=== PATIENT | male | born 1975 | race Caucasian/White ===

== ENCOUNTER 2019-02-23 10:39 | Emergency (ER) | payer OTHER ==
[~2019-02-23] VITALS: Ht 190.5 cm; Wt 93.0 kg
[~2019-02-23 10:39] MED LIST: COLCRYS0.6 MG PO; IBUPROFEN 200200 M1 PO; TRAMADOL 50 MG50 MG PO
[2019-02-23] MEDS ORDERED: AMOXICILLIN 50500 M1 PO (11:15)
[2019-02-23] MEDS ORDERED: NORCO 5-325 TA1 EAC1 PO (11:15)
[2019-02-23] MEDS ORDERED: IBUPROFEN 800800 M1 PO (11:15)
[2019-02-23 11:40] VITALS: BP 130/79
== END 2019-02-23 11:42 | disposition home or self-care (01) ==
LOC: M.ERS 10:39
DX: K04.7 Periapical abscess without sinus (principal); K02.9 Dental caries, unspecified; F17.210 Nicotine dependence, cigarettes, uncomplicated

== ENCOUNTER 2019-11-08 02:17 | Emergency (ER) | payer OTHER ==
[~2019-11-08] VITALS: Ht 188 cm; Wt 81.7 kg
[~2019-11-08 02:17] MED LIST changes: +AMOXICILLIN 50500 M1 PO; +IBUPROFEN 800800 M1 PO; +NORCO 5-325 TA1 EAC1 PO
[2019-11-08 02:21] VITALS: BP 148/99
[2019-11-08] MEDS ORDERED: NORCO 5-325 TA1 EAC1 PO (02:28)
== END 2019-11-08 02:33 | disposition home or self-care (01) ==
LOC: M.ERS 02:17
DX: T23.192A Burn of first degree of multiple sites of left wrist and hand, initial encounter (principal); T23.191A Burn of first degree of multiple sites of right wrist and hand, initial encounter; F17.210 Nicotine dependence, cigarettes, uncomplicated; X11.8XXA Contact with other hot tap-water, initial encounter; Y93.89 Activity, other specified; Y92.89 Other specified places as the place of occurrence of the external cause; Y99.8 Other external cause status

== ENCOUNTER 2020-02-04 12:33 | Emergency (ER) | payer OTHER ==
[~2020-02-04] VITALS: Ht 188 cm; Wt 88.5 kg
[2020-02-04 13:08] LABS: ABSOLUTE BASOPHILS 0.1 thou/uL (0.0-0.2); ABSOLUTE EOSINOPHILS 0.3 thou/uL (0.0-0.7); ABSOLUTE LYMPHOCYTES 3.1 thou/uL (0.8-5.3); ABSOLUTE MONOCYTES 0.8 thou/uL (0.0-1.2); ABSOLUTE NEUTROPHILS 5.3 thou/uL (1.6-8.1); BASOPHILS 0.8 %; EOSINOPHILS 3.1 %; HEMATOCRIT 40.2 % (42.0-52.0); MCH 30.8 pg (26.0-34.0); MCHC 34.7 g/dL (28.0-37.0); MCV 88.6 fL (80.0-100.0); MONOCYTES 8.4 %; MPV 7.7 fl. (7.2-11.1); NUCLEATED RBCS 0 /100WBC; PLATELET COUNT* 322 thou/uL (150-400); POLYS 55.7 %; RBC 4.54 mil/uL (4.50-6.00); RDW-CV 13.4 % (10.5-14.5); WBC 9.6 thou/uL (4.0-11.0)
[2020-02-04 13:29] LABS: CALCIUM 8.5 mg/dL (8.5-10.1); CREATININE 1.1 mg/dL (0.6-1.3); POTASSIUM 3.7 mmol/L (3.5-5.1)
[2020-02-04 13:39] LABS: ALBUMIN 3.8 g/dL (3.4-5.0); TOTAL BILIRUBIN 0.5 mg/dL (<0.1-1.0); TOTAL PROTEIN 6.8 g/dL (6.4-8.2)
[2020-02-04 15:15] VITALS: BP 126/86
--- NOTE | 2020-02-05 10:43 | EKG ---
[place] [address] ELECTROCARDIOGRAM REPORT Name: SHABBIR LIPSCOMB JR Room: [facility]#: [id number] Admission: 02/04/20 Attend Phys: Discharge: 02/04/20 Date of : 79 Date of Service: 02/04/20 1236 Report #: [id number] THIS REPORT FOR: //name// [facility] ED Test Date: 2020-02-04 Test Time: 12:36:12 Pat Name: SHABBIR LIPSCOMB Department: Room: Gender: Entry Level Account Manager: GLORIA : 1975 Requested By: Patty Rodney Order Number: [id number] MD: Romie Croft Measurements Intervals [place] Rate: 79 P: 62 TN: 150 QRS: 41 QRSD: 99 T: 57 QT: 378 QTc: 434 Interpretive Statements Sinus rhythm No previous ECG available for comparison Electronically Signed On 02-05-2020 10:43:24 CDT by Romie Croft [email or web address] <ELECTRONICALLY SIGNED> By: Romie Croft MD, [facility] 02/05/20 1043 1236 1236 Romie Croft MD, FACC /EPI
== END 2020-02-04 15:15 | disposition home or self-care (01) ==
LOC: M.ERS 12:33
PROVIDERS: Nurse Practitioner Family
DX: R20.0 Anesthesia of skin (principal); R06.00 Dyspnea, unspecified; R53.1 Weakness; F17.210 Nicotine dependence, cigarettes, uncomplicated

== ENCOUNTER 2020-09-02 01:25 | Emergency (ER) | payer OTHER ==
[~2020-09-02] VITALS: Ht 180.3 cm; Wt 82.5 kg
[2020-09-02 01:51] LABS: ABSOLUTE BASOPHILS 0.1 thou/uL (0.0-0.2); ABSOLUTE EOSINOPHILS 0.2 thou/uL (0.0-0.7); ABSOLUTE LYMPHOCYTES 2.3 thou/uL (0.8-5.3); ABSOLUTE MONOCYTES 0.8 thou/uL (0.0-1.2); BASOPHILS 0.8 %; EOSINOPHILS 2.5 %; HEMATOCRIT 45.5 % (42.0-52.0); HEMOGLOBIN 15.4 gm/dL (14.0-18.0); LYMPHOCYTES 24.1 %; MCH 30.2 pg (26.0-34.0); MCHC 33.9 g/dL (28.0-37.0); MCV 88.9 fL (80.0-100.0); MONOCYTES 8.6 %; NUCLEATED RBCS 0 /100WBC; PLATELET COUNT* 340 thou/uL (150-400); RBC 5.12 mil/uL (4.50-6.00); RDW-CV 13.4 % (10.5-14.5); WBC 9.4 thou/uL (4.0-11.0)
[2020-09-02 01:55] LABS: CALCIUM 9.7 mg/dL (8.5-10.1); CREATININE 1.2 mg/dL (0.6-1.3); POTASSIUM 3.4 mmol/L (3.5-5.1)
[2020-09-02 02:00] LABS: ALBUMIN 4.2 g/dL (3.4-5.0); TOTAL BILIRUBIN 1.1 mg/dL (<0.1-1.0); TOTAL PROTEIN 8.2 g/dL (6.4-8.2)
[2020-09-02 02:01] LABS: PROTIME 10.6 Seconds (9.20-11.50)
[2020-09-02] MEDS ORDERED: VASERETIC 5-121 EACH PO (04:13)
[2020-09-02 04:20] VITALS: BP 147/92
--- NOTE | 2020-09-04 17:28 | EKG ---
[place] [address] ELECTROCARDIOGRAM REPORT Name: SHABBIR LIPSCOMB JR Room: [facility]#: [id number] Admission: 09/02/20 Attend Phys: Discharge: 09/02/20 Date of : [birth year] Date of Service: 09/02/20 0135 Report #: [id number] THIS REPORT FOR: //name// [facility] ED Test Date: 2020-09-02 Test Time: 01:35:31 Pat Name: SHABBIR LIPSCOMB Department: Room: Gender: Guide Plant: : 1975 Requested By: Roxanne Byers Order Number: [id number] MD: Manas Mak Measurements Intervals [place] Rate: 79 P: 47 IA: 140 QRS: -11 QRSD: 96 T: 39 QT: 366 QTc: 420 Interpretive Statements Sinus rhythm ST elev, probable normal early repol pattern Baseline wander in lead(s) II,III,aVR,aVL,aVF,V2 Compared to ECG 02/04/2020 12:36:12 ST (T wave) deviation now present Electronically Signed On 09-04-2020 17:28:30 CDT by Manas Mak [email or web address] <ELECTRONICALLY SIGNED> By: Manas Mak MD, [facility] 09/04/20 1728 0135 Manas Mak MD, [facility] /EPI
== END 2020-09-02 04:20 | disposition home or self-care (01) ==
LOC: M.ERS 01:25
PROVIDERS: Personal Emergency Response Attendant
DX: F41.9 Anxiety disorder, unspecified (principal); I16.0 Hypertensive urgency; R20.0 Anesthesia of skin; R20.2 Paresthesia of skin; R13.0 Aphagia; F17.210 Nicotine dependence, cigarettes, uncomplicated; Z86.73 Personal history of transient ischemic attack (TIA), and cerebral infarction without residual deficits; Z91.013 Allergy to seafood

== ENCOUNTER 2020-11-30 15:31 | Emergency (ER) | payer OTHER ==
[~2020-11-30] VITALS: Ht 180.3 cm; Wt 68.0 kg
[~2020-11-30 15:31] MED LIST changes: +VASERETIC 5-121 EACH PO
[2020-11-30] MEDS ORDERED: AMOXIL 875 MG875 M1 PO (16:25)
[2020-11-30] MEDS ORDERED: LIDOCAINE VISC100 ML SWISH&SPIT (16:25)
[2020-11-30 16:37] VITALS: BP 126/72
== END 2020-11-30 16:37 | disposition home or self-care (01) ==
LOC: M.ERS 15:31
DX: K04.7 Periapical abscess without sinus (principal); F17.210 Nicotine dependence, cigarettes, uncomplicated; Z91.013 Allergy to seafood

== ENCOUNTER 2021-06-25 13:02 | Emergency (ER) | payer OTHER ==
[~2021-06-25] VITALS: Ht 188 cm; Wt 88.5 kg
[~2021-06-25 13:02] MED LIST changes: +AMOXIL 875 MG875 M1 PO; +LIDOCAINE VISC100 ML SWISH&SPIT
[2021-06-25 14:41] LABS: ABSOLUTE BASOPHILS 0.1 thou/uL (0.0-0.2); ABSOLUTE EOSINOPHILS 0.2 thou/uL (0.0-0.7); ABSOLUTE LYMPHOCYTES 1.7 thou/uL (0.8-5.3); ABSOLUTE MONOCYTES 0.8 thou/uL (0.0-1.2); ABSOLUTE NEUTROPHILS 11.1 thou/uL (1.6-8.1); BASOPHILS 0.6 %; EOSINOPHILS 1.7 %; HEMATOCRIT 45.1 % (42.0-52.0); HEMOGLOBIN 15.1 gm/dL (14.0-18.0); LYMPHOCYTES 11.9 %; MCH 30.2 pg (26.0-34.0); MCHC 33.5 g/dL (28.0-37.0); MCV 90.1 fL (80.0-100.0); MONOCYTES 5.9 %; MPV 7.2 fl. (7.2-11.1); NUCLEATED RBCS 0 /100WBC; PLATELET COUNT* 323 thou/uL (150-400); POLYS 79.9 %; RDW-CV 13.4 % (10.5-14.5); WBC 13.9 thou/uL (4.0-11.0)
[2021-06-25 14:53] LABS: CALCIUM 8.9 mg/dL (8.5-10.1); CREATININE 1.1 mg/dL (0.6-1.3); POTASSIUM 3.9 mmol/L (3.5-5.1)
[2021-06-25 14:57] LABS: ALBUMIN 4.1 g/dL (3.4-5.0); TOTAL BILIRUBIN 0.9 mg/dL (<0.1-1.0); TOTAL PROTEIN 7.3 g/dL (6.4-8.2)
[2021-06-25] MEDS ORDERED: IBUPROFEN 800800 M1 PO (15:32)
[2021-06-25] MEDS ORDERED: ZOFRAN ODT4 MG PO (15:32)
[2021-06-25] MEDS ORDERED: FLOMAX0.4 MG PO (15:32)
[2021-06-25 16:11] LABS: URINE BILIRUBIN NEGATIVE (Negative); URINE BLOOD 3+ (Negative); URINE COLOR YELLOW; URINE GLUCOSE-RANDOM NEGATIVE (Negative); URINE KETONES NEGATIVE (Negative); URINE LEUKOCYTES-REFLEX NEGATIVE (Negative); URINE NITRITE-REFLEX NEGATIVE (Negative); URINE PROTEIN TRACE (Negative); URINE UROBILINOGEN 0.2 E.U./dl (0.2-1.0)
[2021-06-25 16:13] LABS: URINE CLARITY HAZY
[2021-06-25 16:19] LABS: BACTERIA-REFLEX None Seen /HPF (None Seen); CASTS None Seen /LPF (None Seen); CRYSTALS None Seen /LPF (None Seen); SQUAMOUS >10 Many /LPF (0-3); URINE RBC >20 Many /HPF (0-2); URINE WBC-REFLEX 0-5 Rare /HPF (0-5)
[2021-06-25] MEDS ORDERED: HYDROCODON-ACE1 EAC7 PO (17:01)
[2021-06-25 17:11] VITALS: BP 145/85
== END 2021-06-25 17:11 | disposition home or self-care (01) ==
LOC: M.ERS 13:02
PROVIDERS: Nurse Practitioner Family
DX: N13.2 Hydronephrosis with renal and ureteral calculous obstruction (principal); F41.9 Anxiety disorder, unspecified; F17.210 Nicotine dependence, cigarettes, uncomplicated; Z87.442 Personal history of urinary calculi; Z91.013 Allergy to seafood